=== PATIENT | male | born 1940 | race Caucasian/White ===

== ENCOUNTER 2024-12-04 17:22 | Emergency (ER) | payer MEDICARE ==
[2024-12-04] MEDS ORDERED: Lidocaine 1% w/Epinephrine 1:100K 20 ML VIAL ONE (17:45)
[2024-12-04] MEDS ORDERED: Boostrix 0.5 ML (Tdap) VIAL (>/=7 yrs of age) ONE (17:45)
[2024-12-04] MEDS ORDERED: HYDROcodone/Acetaminophen 5/325 mg Tablet ONE (18:10)
[2024-12-04] MEDS ORDERED: Bacitracin 1 PK ONE (19:28)
== END 2024-12-04 19:37 | disposition home or self-care (01) ==
LOC: MADERS 17:22
DX: S92.311A Displaced fracture of first metatarsal bone, right foot, initial encounter for closed fracture (principal); S91.311A Laceration without foreign body, right foot, initial encounter; I48.91 Unspecified atrial fibrillation; I10 Essential (primary) hypertension; W30.81XA Contact with agricultural transport vehicle in stationary use, initial encounter
CPT/HCPCS: 12001; 90715; 99283